=== PATIENT | male | born 1960 | race Hispanic/Latino ===

== ENCOUNTER 2018-01-26 15:08 | Emergency (ER) | payer MEDICAID ==
[2018-01-26 15:58] VITALS: RESP 18; BMI 20.5
--- NOTE | 2018-01-26 17:50 | ED PDOC ---
Arrival/HPI - General Chief Complaint: Hip Pain Time Seen by Provider: 01/26/18 16:36 Historian: Patient, Family (Sister) - History of Present Illness Narrative History of Present Illness (Text): 01/26/18 17:43 Pt is a 57 yr old male with a PMH of ETOH abuse that was previously admitted for possible osteomyelitis/avascular necrosis of the left hip that was treated with IV antibiotics. Given patients h/o alcohol abuse, orthopedist, Dr Lopez chose not to do the surgery at this time as pt needs to abstain from ETOH for a set amount of time to insure surgery is not compromised. Pt continues to have chronic pain of the left hip that prevents him from sleeping at night. Pt is here with his sister to see about getting admitted for surgical repair of the left hip and pain management. Sister also states that there is still identification for the pt pending. Denies fever, chills, sob, cp, abdominal pain, back pain, loss of sensation or motor function. Pt is still able to ambulate with AD Time/Duration: > month Symptom Onset: Gradual Symptom Course: Unchanged Quality: Aching Severity Level: 5 Activities at Onset: Rest, Light Context: Sitting, Standing, Walking, Home Past Medical History - Provider Review Nursing Documentation Reviewed: Yes - Travel History Have you recently traveled outside [place] w/in the past 3 mons?: No - Infectious Disease Hx of Infectious Diseases: None - Tetanus Immunization Tetanus Immunization: Unknown - Reproductive Currently Lactating: No - Past Medical History Past Medical History: No Previous - Cardiac Hx Cardiac Disorders: No - Pulmonary Hx Respiratory Disorders: No - Neurological Hx Neurological Disorder: No - HEENT Hx HEENT Disorder: No - Renal Hx Renal Disorder: No - Endocrine/Metabolic Hx Endocrine Disorders: No - Hematological/Oncological Hx Blood Disorders: No - Integumentary Hx Dermatological Disorder: No - Musculoskeletal/Rheumatological Hx Musculoskeletal Disorders: Yes Hx Falls: Yes - Gastrointestinal Hx Gastrointestinal Disorders: No - Genitourinary/Gynecological Hx Genitourinary Disorders: No - Psychiatric Hx Psychophysiologic Disorder: Yes Hx Substance Use: No Other/Comment: drinks beer on weekend 12 packs - Past Surgical History Past Surgical History: No Previous - Anesthesia Hx Anesthesia: No Hx Anesthesia Reactions: No Hx Malignant Hyperthermia: No - Suicidal Assessment Feels Threatened In Home Enviroment: No Family/Social History - Physician Review Nursing Documentation Reviewed: Yes Family/Social History: Unknown Family HX Smoking Status: Heavy Smoker > 10 Cigarettes Daily Hx Alcohol Use: Yes Frequency of alcohol use: Socially Hx Substance Use: No Hx Substance Use Treatment: No Allergies/Home Meds Allergies/Adverse Reactions: Allergies No Known Allergies Allergy (Verified 01/26/18 15:58) Review of Systems - Review of Systems Constitutional: Normal Eyes: Normal ENT: Normal Respiratory: Normal Cardiovascular: Normal Gastrointestinal: Normal Genitourinary Male: Normal Musculoskeletal: Arthralgias Skin: Normal Neurological: Normal Endocrine: Normal Hemo/Lymphatic: Normal Psychiatric: Normal Physical Exam Vital Signs Reviewed: Yes Vital Signs Temp Pulse Resp BP Pulse Ox 01/26/18 18:27 98.3 F 87 18 154/93 H 97 01/26/18 15:45 98.4 F 93 H 18 128/55 L 99 Temperature: Afebrile Blood Pressure: Normal Pulse: Regular Respiratory Rate: Normal Appearance: Positive for: Well-Appearing, Non-Toxic, Comfortable Pain Distress: Moderate Mental Status: Positive for: Alert and Oriented X 3 - Systems Exam Head: Present: Atraumatic, Normocephalic Pupils: Present: PERRL Extroacular Muscles: Present: EOMI Conjunctiva: Present: Normal Mouth: Present: Moist Mucous Membranes Neck: Present: Normal Range of Motion Respiratory/Chest: Present: Clear to Auscultation, Good Air Exchange. No: Respiratory Distress, Accessory Muscle Use Cardiovascular: Present: Regular Rate and Rhythm, Normal S1, S2. No: Murmurs Abdomen: No: Tenderness, Distention, Peritoneal Signs Back: Present: Normal Inspection. No: CVA Tenderness Upper Extremity: Present: Normal Inspection. No: Cyanosis, Edema Lower Extremity: Present: Normal Inspection, NORMAL PULSES, Tenderness (left hip ppoint tender), Neurovascularly Intact, Capillary Refill < 2 s. No: Edema, CALF TENDERNESS, Normal ROM, Ammon's Sign, Deformity, Temperature Abnormalties Neurological: Present: GCS=15, CN II-XII Intact, Speech Normal, Motor Func Grossly Intact, Normal Sensory Function Skin: Present: Warm, Dry, Normal Color. No: Rashes Psychiatric: Present: Alert, Oriented x 3, Normal Insight, Normal Concentration Medical Decision Making ED Course and Treatment: 01/26/18 17:50 Impression Pt continues to have chronic pain of the left hip that prevents him from sleeping at night. Pt is here with his sister to see about getting admitted for surgical repair of the left hip and pain management. Plan contact [facility], Dr. Mohr, Case management, [employer] pain management 01/26/18 18:28 spoke with Fani who explained the current situation with the pt; advised that if pt is dry (ETOH free) for months, then he will be able to have the surgery Ulices from [employer] also contacted who stated that pt should check in with Medicaid office and prepare to follow up with Fani in a few months to have the surgery, as discussed [facility] consulted and spoke w pt and sisterDebbie Ulices from social economist was contacted to discuss case who was familiar with pt ; advised pt to obtain medicaid, as discussed, and abstain from alcohol and any other harmful substances over the course of 1-2 months; after doing so, see Dr Lopez in office for elective sx Pt was advised and sisterDebbie was contacted to inform as well - Medication Orders Current Medication Orders: Discontinued Medications Tramadol HCl (Ultram) 50 mg PO STAT STA Stop: 01/26/18 17:53 Last Admin: 01/26/18 18:08 Dose: 50 mg ERIKA Pain Assessment Document 01/26/18 18:08 LA (Rec: 01/26/18 18:09 LA [email or web address]) Pain Reassessment Is this a pain reassessment? No Sleep Is patient sleeping during reassessment? No Presence of Pain Presence of Pain Yes Pain Scale Used Pain Scale Used Numeric Location Left, Right or Bilateral Left Pain Location Body Site Hip Description Description Constant Intensity of Pain at present 6 Pain Behavior Guarding Re-Assess: ERIKA Pain Assessment Document 01/26/18 19:04 LA (Rec: 01/26/18 19:04 LA [email or web address]) Pain Reassessment Is this a pain reassessment? Yes Sleep Is patient sleeping during reassessment? No Presence of Pain Presence of Pain No Pain Scale Used Pain Scale Used Numeric Location Left, Right or Bilateral Left Pain Location Body Site Hip Description Intensity of Pain at present 2 Disposition/Present on Arrival - Present on Arrival Any Indicators Present on Arrival: Yes History of DVT/PE: No History of Uncontrolled Diabetes: No Urinary Catheter: No History of Decub. Ulcer: No History Surgical Site Infection Following: None - Disposition Have Diagnosis and Disposition been Completed?: Yes Diagnosis: Left hip pain, Avascular necrosis Disposition: HOME/ ROUTINE Disposition Time: 18:55 Patient Plan: Discharge Condition: STABLE Discharge Instructions (ExitCare): Hip Pain Additional Instructions: Dear Garland, Please follow with Dr. Lopez in his office in the next month to schedule elective hip surgery. As discussed with Ulices from [employer] while you were admitted recently, go to the Medicaid office discuss coverage. In the meantime, you may take the medication prescribed for pain and go to our local [facility] clinic for follow up care. All the best in your recovery. Prescriptions: Naproxen 500 mg PO Q12 #10 tablet Referrals: PCP,CATHERINE [Primary Care Provider] - Follow up with primary [facility] [Outside] - Follow up with primary Dakotah Lopez DO [Staff Provider] - Follow up with primary Forms: [employer] (Bulgarian)
[2018-01-26 18:28] VITALS: BP 154/93; PULSE 87; TEMP 98.3; O2SAT 97
== END 2018-01-26 19:11 | disposition home or self-care (01) ==
LOC: ED 15:08
DX: M25.552 Pain in left hip (principal); M87.9 Osteonecrosis, unspecified